=== PATIENT | male | born 1995 | race Caucasian/White ===

== ENCOUNTER 2018-11-13 18:23 | Emergency (ER) | payer OTHER ==
[~2018-11-13] VITALS: Ht 170.2 cm; Wt 76.2 kg
--- OUTSIDE RECORDS SUMMARY | 2018-11-13 18:28 | XMS REPORT | Continuity of Care Document ---
Author Author [facility] Address Unknown Phone Unavailable Allergies Active Description Code Type Severity Reaction Onset Reported/Identified Relationship to Patient Clinical Status Yes penicillins Drug N/A N/A Medications There is no data. Problems Date Dx Coded Attending Type Code Diagnosis Diagnosed By 08/03/2014 Nelson Bradford Final 493.92 Asthma, Unspecified with (Acute) Exacerbation 08/03/2014 Nelson Bradford Final 786.09 Other Dyspnea and Respiratory Abnormality 03/17/2015 Armando Dooley Final 493.92 Asthma, Unspecified with (Acute) Exacerbation 03/17/2015 Armando Dooley Final 815.01 Closed Fracture of Base of Thumb [first] Metacarpal 03/17/2015 Armando Dooley Final 882.1 Open Wound of Hand Except Fingers Alone, Complicated 03/17/2015 Armando Dooley Admitting 959.4 Other and Unspecified Injury to Hand, Except Finger 03/17/2015 Armando Dooley Final E849.0 Home Accidents 03/17/2015 Armando Dooley Final E920.4 Accidents Caused by Other Hand Tools and Implements 03/19/2015 Armando Dooley Final V06.1 Need for Prophylactic Vaccination and Inoculation Against Di Procedures Code Description Performed By Performed On Simple repair of superficial wounds of nicholas SHY DENNYIN 2014 Results There is no data. Encounters ACCT No. Visit Date/Time Discharge Status Pt. Type Provider Facility Loc./Unit Complaint [id number] 03/19/2015 14:29:00 03/19/2015 15:38:00 DIS Emergency Armando Dooley Guarantor/ person ER Recheck [id number] 03/17/2015 14:25:00 03/17/2015 18:15:00 DIS Emergency Armando Dooley [facility] ER Laceration [id number] 08/03/2014 01:33:00 08/03/2014 02:00:00 DIS Emergency [facility] ER Respiratory [id number] 03/19/2015 14:29:55 ACT Document Registration
--- NOTE | 2018-11-13 20:38 | ED Lower Extremity ---
General Chief Complaint: Lower Extremity Stated Complaint: RT BIG TOE INJ. Source: patient Exam Limitations: no limitations History of Present Illness Date Seen by Provider: Nov 13, 2018 Time Seen by Provider: 20:20 Initial Comments 23-year-old male who presents with right great toe injury from Trop is large. Metal charlee onto his foot while at work yesterday. Patient with subungual hematoma covering entire surface of right great toenail with intact nail. No other injury evident. Onset: this evening Severity: moderate Pain/Injury Location: right 1st toe Method of Injury: direct blow Modifying Factors: Improves With Rest Allergies and Home Medications Patient Home Medication List Home Medication List Reviewed: Yes Review of Systems Constitutional: no symptoms reported EENTM: no symptoms reported Respiratory: no symptoms reported Gastrointestinal: no symptoms reported Genitourinary: no symptoms reported Musculoskeletal: see HPI Skin: no symptoms reported Past Jenbfzi-Mzmfgk-Trcgav Hx Past Med/Social Hx: Reviewed Nursing Past Med/Soc Hx Patient Social History Recent Foreign Travel: No Contact w/Someone Who Travel: No Physical Exam Vital Signs Capillary Refill : Height, Weight, BMI Height: '" Weight: lbs. oz. kg; BMI Method: General Appearance: WD/WN, no apparent distress Feet: right foot nail injury (Large subungual hematoma right great toe, nail is intact. No toe deformity or joint swelling. No exposed lacerations.) Skin: normal color, warm/dry Procedures/Interventions Nail Trepanation : Nail Trepanation Location: right great toe Method of Drainage: nail cauterized Sterile Dressing Applied: Yes Finger Splint: Yes (orthopedic sugar) Progress Successful trephination of toe with removal of subungual blood and relief of symptoms Progress/Results/Core Measures Results/Orders My Orders Orders - RIRI LLANOS DO Toe(S) (11/13/18 20:26) Progress Progress Note : Time: 20:38 Progress Note Nailbed successfully trephinated. Pain relieved. Will obtain an x-ray to rule out fracture, place and splint and orthopedic shoe. Patient instructed to follow up with PCP in one to 2 weeks for reevaluation. Return percussions reviewed Departure Impression Primary Impression: Subungual hematoma of great toe of right foot Disposition: 01 HOME, SELF-CARE Condition: Improved Departure-Patient Inst. Referrals: ACNDELARIO REYES MD (PCP) Primary Care Physician Add. Discharge Instructions: Please wear clean socks, orthopaedic shoe and take ibuprofen for pain. Follow up with your PCP in 1-2 weeks for re-evaluation. Return to the ED if signs of infection. Take ibuprofen as needed for pain. All discharge instructions reviewed with patient and/or family. Voiced understanding. RIRI LLANOS DO Nov 13, 2018 20:38
--- NOTE | 2018-11-13 20:51 | Diagnostic Imaging Report ---
INDICATION: Crush injury to great toe. TECHNIQUE: 3 views of the right great toe were obtained. FINDINGS: No acute fracture or traumatic malalignment. No radiopaque foreign body. The remainder of the visualized osseous structures within the right foot appear intact. IMPRESSION: No acute fracture of the right great toe. Dictated by: Dictated on workstation # [id number]
[2018-11-13 21:24] VITALS: BP 140/88
== END 2018-11-13 21:11 | disposition home or self-care (01) ==
LOC: ER FS 18:25
DX: S90.211A Contusion of right great toe with damage to nail, initial encounter (principal); W20.8XXA Other cause of strike by thrown, projected or falling object, initial encounter; Y92.009 Unspecified place in unspecified non-institutional (private) residence as the place of occurrence of the external cause; Y99.0 Civilian activity done for income or pay
CPT/HCPCS: 73660